=== PATIENT | male | born 1970 | race Caucasian/White ===

== ENCOUNTER 2016-11-16 06:00 | Day surgery (SDC) | payer BC ==
--- NOTE | 2016-11-14 07:28 | HISTORY AND PHYSICAL ---
DATE OF ADMISSION: 11/16/2016 DICTATING PHYSICIAN: Dr. Trejo This will be for outpatient surgery for left shoulder arthroscopy. HISTORY: The patient is a 46-year-old, zopdz-hxbh-jwwhchck gentleman with complaints of left shoulder pain and stiffness. He underwent an MRI which revealed tendinosis of his rotator cuff with acromioclavicular arthrosis. He reports pain with overhead activities and with reaching forward. He reports this has been ongoing for several years. He reports that injection did not help for any significant amount of time. Due to functional impairment, the patient has elected to proceed with surgical intervention. REVIEW OF SYSTEMS: No chest pain, no shortness of breath. No dysuria. PAST MEDICAL HISTORY: 1. Allergic rhinitis. 2. Back pain. 3. Diabetes mellitus. 4. Reflux osteoarthritis. 5. PTSD. PAST SURGICAL HISTORY: 1. Knee. 2. Right thumb. 3. Left ankle. 4. Cholecystectomy. FAMILY HISTORY: Unknown. PRIMARY CARE PHYSICIAN: Farida Morocho at [facility] MEDICATIONS: 1. Nexium 2. Norflex 3. Vicoprofen 4. metformin 5. Lexapro 6. Zyrtec 7. multivitamin 8. garlic ALLERGIES: No known drug allergies. SOCIAL HISTORY: The patient chews tobacco. Denies alcohol use. PHYSICAL EXAMINATION: The patient is well-developed, well-nourished, in no acute distress. HEENT: Normocephalic, atraumatic. Pupils are equal, round, and active to light. Oropharynx is clear. NECK: Supple with no lymphadenopathy. LUNGS: Clear to auscultation bilaterally. HEART: Regular rate and rhythm. ABDOMEN: Soft, nontender, nondistended. EXTREMITY EXAM: The left shoulder demonstrates tenderness over his acromioclavicular joint. He has pain with cross body adduction. He has a positive Neer and positive Doran sign with a positive Runnels's maneuver. No gross weakness with abduction, external, or internal rotation. IMPRESSION: Left shoulder SLAP tear with acromioclavicular arthrosis. PLAN: Left shoulder arthroscopy, biceps tenotomy and distal clavicle excision. The risks, benefits, options, ramifications and recovery have been discussed at length with the patient. He understands and wishes to proceed. Job ID: [id number] Dictated Date: 11/08/2016 16:47:00 [facility] Date: 11/09/2016 07:54:17/nisha
[~2016-11-16] VITALS: Ht 193 cm; Wt 177.0 kg
[~2016-11-16 06:00] MED LIST: CETI10TA20 PO; ESCI20TA PO; ESOM20CA PO; GARL10002 PO; GARLIC PO; HYDR-87 PO; HYDR1TAB8 OP; HYDR25TA4 PO; LEXAPRO PO; METF-380 PO; MULT-517 PO; MULT-985 PO; NF-ESOM40C PO; ORPH100T PO; OXYC-12 PO; TUMERIC PO; TURM500C4 PO
[2016-11-16] MEDS: LACTATED RINGERS 1,000 ML IV PRN ×2 (06:30→08:18)
[2016-11-16] MEDS ORDERED: FAMOTIDINE 20MG/2ML IV (PEPCID) ONE (06:39)
[2016-11-16] MEDS ORDERED: ceFAZolin 1,000 MG (ANCEF) VIAL ONE (06:39)
[2016-11-16] MEDS ORDERED: NORMAL SALINE (BAXTER MINI) 50 ML IV ONE (06:39)
[2016-11-16 06:40] VITALS: BP 124/87
[2016-11-16] MEDS ORDERED: LIDOCAINE PF 2% 10 ML (XYLOCAINE) AMP ONE (06:47)
[2016-11-16] MEDS ORDERED: ONDANSETRON 4 MG/2 ML (SDV) Z0FRAN ONE (06:47)
[2016-11-16] MEDS ORDERED: LACTATED RINGERS 1,000 ML IV ONE ×2 (06:47→08:28)
[2016-11-16] MEDS ORDERED: ROCURONIUM 50 MG/5 ML (ZEMURON) VIAL IV ONE (06:47)
[2016-11-16] MEDS ORDERED: proPOfol 200 MG/20 ML (DIPRIVAN) VIAL IV ONE (06:47)
[2016-11-16] MEDS ORDERED: fentaNYL INJECTION 100 MCG/2 ML AMP ONE ×3 (06:47→09:39)
[2016-11-16] MEDS ORDERED: MIDAZOLAM 2 MG/2 ML (VERSED) VIAL ONE (06:47)
[2016-11-16] MEDS ORDERED: BUPIVACAINE 0.25% 30 ML (SENSORCAINE) VIAL ONE (06:58)
[2016-11-16] MEDS ORDERED: morphine PF (DURAMORPH) 10 MG/10 ML AMP ONE (06:58)
[2016-11-16] MEDS ORDERED: ceFAZolin 1 GM/NS 50 ML IVPB IV ONE ×2 (07:15)
[2016-11-16] MEDS ORDERED: FAMOTIDINE 20MG/2ML IV (PEPCID) IV ONE (07:15)
[2016-11-16] MEDS: ceFAZolin INJECTION 1,000 MG in NORMAL SALINE (BAXTER MINI) 50 ML IV ONE ×2 (07:29→07:59)
[2016-11-16] MEDS ORDERED: oxyCODONE/APAP 5/325MG (PERCOCET 5) TABLET PO PRN (07:30)
--- NOTE | 2016-11-16 07:33 | Progress Note-Pre Operative ---
Pre-Operative Progress Note H&P Reviewed The H&P was reviewed, patient examined and no changes noted. Date H&P Reviewed: Nov 16, 2016 Time H&P Reviewed: 07:15 Pre-Operative Diagnosis: left acromioclavicular arthritis and SLAP tear TIP LUNA MD Nov 16, 2016 07:33
--- NOTE | 2016-11-16 07:34 | Progress Note-Post Operative ---
Post-Operative Progess Note Airbrush Painter Shivam Villarreal Pre-Operative Diagnosis left acromioclavicular arthritis and SLAP tear Post-Operative Diagnosis left acromioclavicular arthritis left shoulder SLAP tear left shoulder labral tear Post-Op Procedure Note Date of Procedure: Nov 16, 2016 Name of Procedure: left shoulder arthroscopic biceps tenotomy and labral debridement and distal clavicle excision Anesthesia Type GETA Estimated blood loss (mL): minimal Packing: none Specimen(s) collected none TIP LUNA MD Nov 16, 2016 07:34
[2016-11-16] MEDS ORDERED: NEOSTIGMINE (BLOXIVERZ ) 1 MG/1ML 10 ML VIAL ONE (08:28)
[2016-11-16] MEDS ORDERED: PHENYLEPHRINE 100 MCG/ML 10 ML (ANESTHESIA) SYR ONE ×2 (08:28→08:37)
[2016-11-16] MEDS ORDERED: GLYCOPYRROLATE 0.2 MG/ML (ROBINUL) 2 ML VIAL ONE ×2 (08:28→08:37)
[2016-11-16] MEDS ORDERED: ONDANSETRON 4 MG/2 ML (SDV) Z0FRAN IVP PRN (09:00)
[2016-11-16] MEDS ORDERED: MEPERIDINE (DEMEROL) INJ 50 MG/ML IVP PRN (09:00)
[2016-11-16] MEDS ORDERED: SEVOFLURANE (ULTANE) 15 ML INHAL SOLN ONE (09:03)
[2016-11-16] MEDS: morphine INJ 10 MG/ML 1ML (SYR OR VIAL) IVP PRN ×2 (09:04→09:13)
[2016-11-16] MEDS ORDERED: HYDROmorphone (DILAUDID) 2 MG/ML VIAL ONE (09:15)
[2016-11-16] MEDS: HYDROmorphone (DILAUDID) 2 MG/ML VIAL IVP PRN ×4 (09:20→09:40)
[2016-11-16] MEDS: fentaNYL INJECTION 100 MCG/2 ML AMP IVP PRN (09:44)
[2016-11-16] MEDS ORDERED: OXYC-197 PO (09:46)
[2016-11-16 10:05] VITALS: BP 139/88
[2016-11-16 10:35] VITALS: BP 131/84
--- NOTE | 2016-11-16 10:58 | OPERATIVE REPORT ---
PROCEDURE PHYSICIAN: TIP LUNA DATE OF PROCEDURE: 11/16/2016 PREOPERATIVE DIAGNOSIS: 1. Left shoulder SLAP tear. 2. Left acromioclavicular arthritis, post traumatic. 3. Left shoulder labral tear. POSTOPERATIVE DIAGNOSIS: 1. Left shoulder SLAP tear. 2. Left acromioclavicular arthritis, post traumatic. 3. Left shoulder labral tear. PROCEDURES: 1. Left shoulder arthroscopic biceps tenotomy. 2. Left shoulder arthroscopic labral debridement. 3. Left arthroscopic distal clavicle excision, SURGEON: Maya MOLD STAMPER: Shivam Villarreal who assisted throughout the procedure and closed the incisions. ANESTHESIA: General endotracheal by Yoselyn Ortega CRNA. ESTIMATED BLOOD LOSS: Minimal. DRAINS: None. COMPLICATIONS: None. POSTOPERATIVE PLAN: Sling wear for comfort with progressive range of motion as symptoms allow. The patient was then transported to the recovery room, awake, in stable condition. STATEMENT OF MEDICAL NECESSITY: The patient is a 46-year-old, azxtx-sdsm-eitiwcuc gentleman with complaints of left anterior and superior shoulder pain. He was tender over his acromioclavicular joint. He had pain with crossed body adduction. He also had a positive Given's maneuver and pain with apprehension, relieved with relocation. He had failed to respond to conservative measures and due to functional impairment, the patient elected to proceed with surgical intervention. Examination under anesthesia revealed forward elevation of 170 degrees, external rotation 85 degrees and internal rotation 75 degrees. Arthroscopic findings demonstrated type II SLAP tear. In addition, there was a flap tear of the anterior labrum from the 10 to 12 o'clock positions with no detachment of the capsule labral complex. The glenoid demonstrated diffuse grade 1 chondral softening. The humeral head demonstrated no chondral abnormalities. The remainder of the labrum was intact. The rotator cuff was intact throughout. Subacromial space demonstrated moderate bursitis with prominence of the distal clavicle at the acromioclavicular joint. PROCEDURE: After risks and benefits of the procedure were discussed and questions were answered, informed consent was signed and placed on the chart. The operative site was confirmed in the preoperative holding and initialed by the surgeon. The patient was then transported to the operating room and after adequate levels of general endotracheal anesthetic were obtained, a timeout was called confirming the operative site. An examination under anesthesia was performed with the above findings noted. The left shoulder and upper extremity were prepped and draped in the usual sterile fashion. The shoulder injection was injected with 20 mL of fluid as was the subacromial space. A standard posterior portal was placed. Under direct visualization anterior portal was created in the interval between the biceps, subscapularis and glenoid. The biceps anchor was released and the stump was debrided with the shaver. The anterior labral flap was debrided with a shaver, back to a stable edge as well. The scope was redirected into the subacromial space and a lateral portal was created and bursectomy was performed. The distal clavicle was exposed into the anterior portal. A bur was used to resect the distal 8 mm from anterior to posterior and from medial to lateral. The scope was then inserted anteriorly to assure adequate resection. The subacromial space was copiously irrigated. The port sites were closed with 3-0 nylon in simple interrupted fashion. The shoulder was injected with Duramorph. Portal sites were infiltrated with plain Marcaine. A soft dressing and sling were applied. The patient was transported to the recovery room awake and in stable condition. Job ID: [id number] Dictated Date: 11/16/2016 08:53:13 Medical Detailist Date: 11/16/2016 10:45:28 / lanie
[2016-11-16 11:05] VITALS: BP 125/86
== END 2016-11-16 11:58 | disposition home or self-care (01) ==
LOC: SDC 06:00
PROVIDERS: ATTEND Orthopaedic Surgery
DX: S43.412A Sprain of left coracohumeral (ligament), initial encounter (principal); M19.112 Post-traumatic osteoarthritis, left shoulder; E11.9 Type 2 diabetes mellitus without complications; F17.220 Nicotine dependence, chewing tobacco, uncomplicated; Z79.899 Other long term (current) drug therapy

== ENCOUNTER → 2017-09-14 | Outpatient (CLI) | payer BC ==
[~2017-09-14] MED LIST changes: +OXYC-197 PO
--- NOTE | 2017-09-14 13:25 | Diagnostic Imaging Report ---
PROCEDURE: US Abdomen, limited. TECHNIQUE: Multiple real-time grayscale images were obtained over the abdomen in various projections. INDICATION: Right upper quadrant pain. FINDINGS: The pancreas is obscured by bowel gas. The liver is hyperechoic suggestive of fatty infiltration or hepatitis and attenuates the ultrasound beam. No definite focal lesion. The deep areas in the liver are not well evaluated. The portal vein is not seen. The gallbladder has been removed. The CBD is obscured. The right kidney is also obscured. No ascites is evident. The study overall is limited. IMPRESSION: Limited exam. The visualized portions of the liver demonstrate echogenic parenchyma attenuating the ultrasound beam suggestive of underlying hepatitis or fatty infiltration. Dictated by: Dictated on workstation # [id number]
== END ==
LOC: RAD 06:58
PROVIDERS: ATTEND Nurse Practitioner Community Health
DX: R10.11 Right upper quadrant pain (principal); Z53.29 Procedure and treatment not carried out because of patient's decision for other reasons
CPT/HCPCS: 76705

== ENCOUNTER 2018-04-17 16:52 | Emergency (ER) | payer BC ==
[~2018-04-17] VITALS: Ht 193 cm; Wt 172.4 kg
[2018-04-17 18:12] LABS: BILIRUBIN,URINE NEGATIVE (NEGATIVE); CLARITY,URINE CLEAR; COLOR,URINE YELLOW; GLUCOSE, URINE (UA) NEGATIVE (NEGATIVE); KETONES,URINE NEGATIVE (NEGATIVE); LEUKOCYTE ESTERASE ,URINE NEGATIVE (NEGATIVE); NITRITE,URINE NEGATIVE (NEGATIVE); PH,URINE 6.5 (5-9); PROTEIN,URINE NEGATIVE (NEGATIVE); UROBILINOGEN,URINE NORMAL (NORMAL)
--- NOTE | 2018-04-17 18:14 | ED GU-Male ---
General Chief Complaint: -Male Stated Complaint: TROUBLE URINATING;BACK PAIN Nursing Triage Note: TO ROOM C/O URINARY PROBLEMS REPORTS WAS URINATING THIS AM AND IT STOPPED IN MID STREAM. HAVING PAIN ON R FLANK. 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 Source: patient, spouse Exam Limitations: no limitations History of Present Illness Date Seen by Provider: Apr 17, 2018 Time Seen by Provider: 17:59 Initial Comments Patient presents to ER by private conveyance with his spouse and a chief complaint that last night he was having some urinary hesitancy but no hematuria. Today he started having more pain and his urine stream got cut off midstream. He is having some pain in his right flank and a little bit radiating to his right groin. No fevers chills nausea but he has had some malaise. No shortness of breath or cough. He does not have a history of any abdominal or surgeries or scopes, BPH or kidney stones in the past. He has not seen a stone pass. Allergies and Home Medications Allergies Coded Allergies: No Known Drug Allergies (Unverified , 10/28/14) Home Medications Cetirizine HCl 10 Mg Tablet, 10 MG PO DAILY, (Reported) Escitalopram Oxalate 20 Mg Tablet, 20 MG PO DAILY, (Reported) Esomeprazole Magnesium 20 Mg Capsule.dr, 20 MG PO DAILY, (Reported) Garlic 1,000 Mg Capsule, 1,000 MG PO DAILY, (Reported) Hydrochlorothiazide 25 Mg Tablet, 25 MG PO DAILY, (Reported) Metformin Hcl 1,000 Mg Tablet, 1,000 MG PO BID WITH MEALS, (Reported) Multivitamin 1 Each Tablet, 1 EACH PO DAILY, (Reported) Multivitamin with Minerals 1 Each Tablet, 1 EACH PO DAILY, (Reported) Orphenadrine Citrate 100 Mg Tablet.sa, 100 MG PO DAILY, (Reported) Turmeric Root Extract 500 Mg Capsule, 500 MG PO BID, (Reported) Patient Home Medication List Home Medication List Reviewed: Yes Review of Systems Constitutional: No chills, No diaphoresis, No fever; malaise EENTM: No ear discharge, No ear pain Respiratory: No cough, No phlegm, No short of breath Cardiovascular: No chest pain, No edema Gastrointestinal: No abdominal pain, No constipation, No diarrhea, No nausea, No vomiting Genitourinary: burning; denies discharge, denies dysuria; flank pain; denies incontinence; other (urinary hesitancy) Musculoskeletal: No back pain, No joint pain Skin: No pruritus, No rash Past Blrpiov-Ckmscj-Kqunos Hx Patient Social History Alcohol Use: Denies Use Recreational Drug Use: No Type Used: Electronic/Vapor Recent Foreign Travel: No Contact w/Someone Who Travel: No Recent Infectious Disease Expo: No Recent Hopitalizations: No Seasonal Allergies Seasonal Allergies: No Past Medical History Surgeries: Yes (RIGHT KNEE X14, LEFT ANKLE X4, PINS IN R THUMB, BACK INJECTIONS , L elbow) Respiratory: No Cardiac: Yes Hypertension Neurological: No Gastrointestinal: No Musculoskeletal: Yes Arthritis Endocrine: Yes (INSULIN INTOLERANCE) Diabetes, Non-Insulin dep Cancer: No Psychosocial: Yes PTSD Integumentary: No Blood Disorders: No Physical Exam Vital Signs Vital Signs - First Documented 04/17/18 17:14 Temp 98.0 Pulse 114 Resp 18 B/P (MAP) 128/93 (105) Pulse Ox 97 O2 Delivery Room Air Capillary Refill : Less Than 3 Seconds General Appearance: WD/WN, no apparent distress HEENT: PERRL/EOMI, pharynx normal Neck: non-tender, full range of motion Cardiovascular: normal peripheral pulses, regular rate, rhythm Respiratory: no respiratory distress, no accessory muscle use Gastrointestinal: non tender, soft Back: normal inspection, CVA tenderness (R); No CVA tenderness (L) Neurologic/Psychiatric: alert, oriented x 3 Skin: normal color, warm/dry Progress/Results/Core Measures Suspected Sepsis Recent Fever Within 48 Hours: No Infection Criteria Present: None New/Unexplained Altered Menta: No Sepsis Screen: No Definite Risk SIRS Temperature:98.0 Pulse: 114 Respiratory Rate: 18 Laboratory Tests 04/17/18 18:29: White Blood Count 9.3 Blood Pressure 128 /93 Mean: 105 Laboratory Tests 04/17/18 18:29: Creatinine 1.00, Platelet Count 257, Total Bilirubin 0.7 Results/Orders Lab Results Laboratory Tests Test 04/17/18 18:07 04/17/18 18:29 Range/Units Urine Color YELLOW Urine Clarity CLEAR Urine pH 6.5 5-9 Urine Specific [place] 1.005 L 1.016-1.022 Urine Protein NEGATIVE NEGATIVE Urine Glucose (UA) NEGATIVE NEGATIVE Urine Ketones NEGATIVE NEGATIVE Urine Nitrite NEGATIVE NEGATIVE Urine Bilirubin NEGATIVE NEGATIVE Urine Urobilinogen NORMAL NORMAL MG/DL Urine Leukocyte Esterase NEGATIVE NEGATIVE Urine RBC (Auto) NEGATIVE NEGATIVE Urine RBC NONE /HPF Urine WBC NONE /HPF Urine Squamous Epithelial Cells RARE /HPF Urine Crystals NONE /LPF Urine Bacteria NONE /HPF Urine Casts NONE /LPF Urine Mucus NEGATIVE /LPF Urine Culture Indicated NO White Blood Count 9.3 4.3-11.0 10^3/uL Red Blood Count 5.09 4.35-5.85 10^6/uL Hemoglobin 15.2 13.3-17.7 G/DL Hematocrit 43 40-54 % Mean Corpuscular Volume 84 80-99 FL Mean Corpuscular Hemoglobin 30 25-34 PG Mean Corpuscular Hemoglobin Concent 35 32-36 G/DL Red Cell Distribution Width 14.2 10.0-14.5 % Platelet Count 257 130-400 10^3/uL Mean Platelet Volume 10.8 H 7.4-10.4 FL Neutrophils (%) (Auto) 65 42-75 % Lymphocytes (%) (Auto) 27 12-44 % Monocytes (%) (Auto) 7 0-12 % Eosinophils (%) (Auto) 2 0-10 % Basophils (%) (Auto) 0 0-10 % Neutrophils # (Auto) 6.0 1.8-7.8 X 10^3 Lymphocytes # (Auto) 2.5 1.0-4.0 X 10^3 Monocytes # (Auto) 0.6 0.0-1.0 X 10^3 Eosinophils # (Auto) 0.2 0.0-0.3 10^3/uL Basophils # (Auto) 0.0 0.0-0.1 10^3/uL Sodium Level 140 135-145 MMOL/L Potassium Level 4.0 3.6-5.0 MMOL/L Chloride Level 105 98-107 MMOL/L Carbon Dioxide Level 22 21-32 MMOL/L Anion Gap 13 5-14 MMOL/L Blood Urea Nitrogen 15 7-18 MG/DL Creatinine 1.00 0.60-1.30 MG/DL Estimat Glomerular Filtration Rate > 60 BUN/Creatinine Ratio 15 Glucose Level 98 70-105 MG/DL Calcium Level 9.9 8.5-10.1 MG/DL Total Bilirubin 0.7 0.1-1.0 MG/DL Aspartate Amino Transf (AST/SGOT) 36 H 5-34 U/L Alanine Aminotransferase (ALT/SGPT) 48 0-55 U/L Alkaline Phosphatase 63 40-136 U/L Total Protein 7.9 6.4-8.2 GM/DL Albumin 4.5 3.2-4.5 GM/DL My Orders Orders - JR HAM Ua Culture If Indicated (04/17/18 18:02) Cbc With Automated Diff (04/17/18 18:08) Comprehensive Metabolic Panel (04/17/18 18:08) Ct Abdomen/Pelvis Wo (04/17/18 18:08) Ketorolac Injection (Toradol Injection) (04/17/18 18:15) Fentanyl Injection (Sublimaze Injection (04/17/18 20:00) Oxycodone/Apap 5/325mg Tablet (Percocet (04/17/18 20:00) Fentanyl Injection (Sublimaze Injection (04/17/18 20:00) Medications Given in ED Current Medications Medications Dose Ordered Sig/Javad Route Start Time Stop Time Status Last Admin Dose Admin Fentanyl Citrate 50 mcg ONCE ONCE IVP 04/17/18 20:00 04/17/18 20:00 DC 04/17/18 19:56 50 MCG Ketorolac Tromethamine 30 mg ONCE ONCE IM 04/17/18 18:15 04/17/18 18:16 DC 04/17/18 18:37 30 MG Oxycodone/ Acetaminophen 1 tab ONCE ONCE PO 04/17/18 20:00 04/17/18 20:01 04/17/18 19:53 1 TAB Vital Signs/I&O 04/17/18 17:14 Temp 98.0 Pulse 114 Resp 18 B/P (MAP) 128/93 (105) Pulse Ox 97 O2 Delivery Room Air Capillary Refill : Less Than 3 Seconds Blood Pressure Mean: 105 Progress Note #1: Time: 18:13 Progress Note Kidney stone versus anatomical posterior urethral valve versus pyelonephritis etc. We will get a CT scan, some basic labs looking for evidence of sepsis. Progress Note #2: Time: 20:12 Progress Note The patient's pain did improve with some opiates. He has Vicoprofen at home and is on a pain contract so he wished that we would not send a prescription for oxycodone and for him but he is willing to take the ondansetron and Flomax. We are going to Have him follow up outpatient with Dr. Longoria's office. Diagnostic Imaging Diagonstic Imaging: CT Plain Films/CT/US/NM/MRI: abdomen, pelvis Reviewed: Reviewed by Me (without contrast) Departure Impression Primary Impression: Urinary hesitancy Additional Impression: Right flank discomfort Disposition: 01 HOME, SELF-CARE Condition: Improved Departure-Patient Inst. Decision time for Depature: 20:00 Referrals: MATTY CARRANZA MD (PCP) Primary Care Physician GRIS BUCKNER (Family) Primary Care Physician Patient Instructions: Urinary Obstruction (DC) Add. Discharge Instructions: Tomorrow please call urologist such as Dr. Jenkins at his office at [phone] to get an appointment for your urinary obstruction/hesitancy. If you're unable to urinate or you begin to experience fevers, chills, nausea or intractable pain then you should return to the ER for further reevaluation. If you have nausea you may take one tablet of Zofran every 6 hours as needed. If you have pain you may take one to 2 tablets of the oxycodone every 6 hours as needed for pain. Start Flomax tonight one tablet a day until you see the urologist. All discharge instructions reviewed with patient and/or family. Voiced understanding. Scripts Ondansetron (Ondansetron Odt) 4 Mg Tab.rapdis 4 MG PO Q6H PRN for NAUSEA/VOMITING, #8 TAB 0 Refills Prov: JR HAM 04/17/18 Tamsulosin HCl (Flomax) 0.4 Mg Cap 0.4 MG PO HS for 14 Days, #14 CAP 0 Refills Prov: JR HAM 04/17/18 Work/School Note: Work Release Form Date Seen in the Emergency Department: Apr 17, 2018 Return to Work: Apr 19, 2018 Restrictions: No Restrictions Copy Copies To 1: OLEGARIO YOUNG DO; HORTENCIA JENKINS MD, TITUS J Apr 17, 2018 18:14
[2018-04-17] MEDS ORDERED: KETOROLAC 30 MG/ML VIAL IM ONE (18:15)
[2018-04-17 18:24] LABS: SQUAMOUS EPITHELIAL CELL,UR RARE /HPF
[2018-04-17 18:37] LABS: BASOPHILS % (AUTO) 0 % (0-10); EOSINOPHILS # (AUTO) 0.2 10^3/uL (0.0-0.3); EOSINOPHILS % (AUTO) 2 % (0-10); HEMATOCRIT 43 % (40-54); HEMOGLOBIN 15.2 G/DL (13.3-17.7); LYMPHOCYTES # (AUTO) 2.5 X 10^3 (1.0-4.0); LYMPHOCYTES % (AUTO) 27 % (12-44); MEAN CORPUSCULAR HEMOGLOBIN 30 PG (25-34); MEAN CORPUSCULAR HGB CONC 35 G/DL (32-36); MEAN CORPUSCULAR VOLUME 84 FL (80-99); MEAN PLATELET VOLUME 10.8 FL (7.4-10.4); MONOCYTES # (AUTO) 0.6 X 10^3 (0.0-1.0); MONOCYTES % (AUTO) 7 % (0-12); NEUTROPHILS % (AUTO) 65 % (42-75); PLATELET COUNT 257 10^3/uL (130-400); RED BLOOD COUNT 5.09 10^6/uL (4.35-5.85); RED CELL DISTRIBUTION WIDTH 14.2 % (10.0-14.5); WHITE BLOOD COUNT 9.3 10^3/uL (4.3-11.0)
[2018-04-17 18:55] LABS: ALANINE AMINOTRANSFERASE 48 U/L (0-55); ALBUMIN 4.5 GM/DL (3.2-4.5); ALKALINE PHOSPHATASE 63 U/L (40-136); BILIRUBIN,TOTAL 0.7 MG/DL (0.1-1.0); BUN/CREATININE RATIO 15; CALCIUM 9.9 MG/DL (8.5-10.1); CARBON DIOXIDE 22 MMOL/L (21-32); CHLORIDE 105 MMOL/L (98-107); GFR ESTIMATED > 60; GLUCOSE 98 MG/DL (70-105); SODIUM 140 MMOL/L (135-145); TOTAL PROTEIN 7.9 GM/DL (6.4-8.2)
--- NOTE | 2018-04-17 19:49 | Diagnostic Imaging Report ---
PROCEDURE: CT abdomen and pelvis without contrast. TECHNIQUE: Multiple contiguous axial images were obtained through the abdomen and pelvis without the use of intravenous contrast. INDICATION: Right flank pain. Difficulty urinating. FINDINGS: The lung bases are clear. The kidneys show no evidence of calculi. There is no hydronephrosis. Renal outlines are smooth. There is a small hypodense lesion measuring 2.2 cm off the lower pole of the right kidney which is most likely a benign cyst though lack of IV contrast limits characterization. Ureters are not dilated. Bladder appears normal without distention. The prostate is not enlarged. The liver appears normal. Gallbladder is absent. Bile ducts are not dilated. Pancreas and spleen are normal. The adrenal glands are normal. No evidence of aortic aneurysm. Bowel gas pattern appears normal. The appendix is normal. There is no evidence of diverticulitis. There is no free air or free fluid. No bony lesions. IMPRESSION: 1. Probable cyst off the lower pole of the right kidney measuring 2.2 cm. No evidence of hydronephrosis or calculi. 2. No acute intra-abdominal findings demonstrated. Dictated by: Dictated on workstation # [id number]
[2018-04-17] MEDS ORDERED: HYDR-87 (19:57)
[2018-04-17] MEDS ORDERED: oxyCODONE/APAP 5/325MG (PERCOCET 5) TABLET PO ONE (20:00)
[2018-04-17] MEDS ORDERED: fentaNYL INJECTION 100 MCG/2 ML AMP IM ONE (20:00)
[2018-04-17] MEDS ORDERED: fentaNYL INJECTION 100 MCG/2 ML AMP IVP ONE (20:00)
[2018-04-17] MEDS ORDERED: TAMS0.4C98 PO (20:04)
[2018-04-17] MEDS ORDERED: OXYC-471 PO (20:04)
[2018-04-17] MEDS ORDERED: ONDA4TAB11 PO (20:04)
[2018-04-17 20:18] VITALS: BP 121/86
== END 2018-04-17 20:18 | disposition home or self-care (01) ==
LOC: EDUNIT# 16:52 → ER 16:54
DX: R39.11 Hesitancy of micturition (principal); R10.9 Unspecified abdominal pain; F43.10 Post-traumatic stress disorder, unspecified; I10 Essential (primary) hypertension; Z98.890 Other specified postprocedural states; Z79.84 Long term (current) use of oral hypoglycemic drugs
CPT/HCPCS: 36415; 74176; 80053; 81000; 85025; 96372